=== PATIENT | female | born 1950 | race Caucasian/White ===

== ENCOUNTER → 2016-02-24 | Outpatient (CLI) | payer OTHER ==
--- NOTE | 2016-02-24 10:52 | CT ---
EXAM DESCRIPTION: CT LOWER EXTREMITY WITHOUT IV CONTRAST CLINICAL HISTORY: 65 y/o F, LEFT HIP PAIN COMPARISON: April 28, 2013 TECHNIQUE: Thin slice axial imaging of the left hip was performed without contrast. The data was reformatted for interpretation. FINDINGS: There is mild articular cartilage loss of the left hip. Osteophyte formation along the posterior margin of the acetabulum and acetabular roof. Subtle osteophytes noted along the posterior and inferior margin of the femoral head. No evidence of femoral neck fracture. No evidence of acetabular fracture. Degenerative change of the bilateral sacroiliac joints and pubic symphysis noted with osteophyte formation and joint space loss. Large fat containing umbilical hernia. Irregularity to the anterior margin of the greater trochanter likely compatible with tendinosis of the gluteus minimus and medius tendons. 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 Left hip demonstrates small osteophytes noted about the acetabulum and femoral head with minimal joint space loss. 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 Electronically signed by: Juanito Neves MD 02/24/2016 10:50
== END ==
LOC: CT 10:07
PROVIDERS: ATTEND Family Medicine
DX: M16.12 Unilateral primary osteoarthritis, left hip (principal); M47.898 Other spondylosis, sacral and sacrococcygeal region

== ENCOUNTER → 2016-08-03 | Outpatient (CLI) | payer OTHER | END | disposition home or self-care (01) | LOC: GMAB 10:35 | PROVIDERS: ATTEND Family Medicine | DX: K21.9 Gastro-esophageal reflux disease without esophagitis (principal) ==

== ENCOUNTER → 2017-09-17 | Outpatient (CLI) | payer MEDICARE, OTHER | LOC: GMAE 11:53 | PROVIDERS: ATTEND Family Medicine | DX: I10 Essential (primary) hypertension (principal); E11.40 Type 2 diabetes mellitus with diabetic neuropathy, unspecified ==

== ENCOUNTER → 2018-03-18 | Outpatient (CLI) | payer MEDICARE, OTHER ==
--- NOTE | 2018-03-18 16:26 | US ---
EXAM DESCRIPTION: Carotid Duplex: ULTRASOUND. CLINICAL HISTORY: 67 years Female CAROTID BRUIT COMPARISON: None. TECHNIQUE: Transcutaneous scanning utilizing wiseman-scale and Doppler modes to evaluate the bilateral carotid systems and vertebral arteries. Percentage of diameter of stenosis or no stenosis recorded will be based upon NASCET criteria. FINDINGS: Peak systolic/end diastolic (CM-Sec) CCA Right 94/13 Left 143/22. ICA Right proximal 53/12, mid 66/19. Left proximal 62/14, Distal 98/28. Vertebral Right 67/15 Left 93/12. ECA (PS Only) Right 65 left 98. ICA/CCA peak systolic ratio: Right 0.7 Left 0.7 ICA/CCA end diastolic ratio: Right 1.5 Left 1.3 Vertebral arteries: antegrade flow. Comments: Atherosclerotic plaque in the right CCA bulb with the 20% area stenosis. 11% diameter stenosis. Atherosclerotic plaque in the left CCA bulb with 12% area stenosis and 70% diameter stenosis. Spectral broadening in the bilateral mid and distal ICAs IMPRESSION: 1. Doppler evaluation of the bilateral carotid systems and vertebral arteries shows no hemodynamically significant stenoses. 2. No significant amount of plaque seen in the carotid arteries bilaterally. Bilateral vertebral arteries showed antegrade-cephalad flow. Electronically signed by: Aurelio Hare MD 03/18/2018 4:24 PM [facility]BAR F[employer]IC[employer]
== END ==
LOC: US 14:25
PROVIDERS: ATTEND Family Medicine
DX: I65.23 Occlusion and stenosis of bilateral carotid arteries (principal)

== ENCOUNTER → 2018-05-20 | Outpatient (CLI) | payer MEDICARE, OTHER | LOC: LAB.O 11:24 | PROVIDERS: ATTEND Family Medicine | DX: M06.9 Rheumatoid arthritis, unspecified (principal); R94.5 Abnormal results of liver function studies; Z79.899 Other long term (current) drug therapy ==

== ENCOUNTER → 2018-11-24 | Outpatient (CLI) | payer MEDICARE, OTHER | LOC: GMAE 10:36 | PROVIDERS: ATTEND Family Medicine | DX: I10 Essential (primary) hypertension (principal); E11.9 Type 2 diabetes mellitus without complications ==

== ENCOUNTER → 2019-07-20 | Outpatient (CLI) | payer MEDICARE, OTHER | LOC: GMAE 11:25 | PROVIDERS: ATTEND Family Medicine | DX: I10 Essential (primary) hypertension (principal); E11.9 Type 2 diabetes mellitus without complications ==